=== PATIENT | male | born 1955 | race Caucasian/White ===

== ENCOUNTER 2021-01-02 11:08 | Emergency (ER) | payer OTHER ==
[~2021-01-02] VITALS: Ht 167.6 cm; Wt 75.0 kg
[~2021-01-02 11:08] MED LIST: AMOX/K CLAV875 M1 PO
[2021-01-02] MEDS ORDERED: AMOX/K CLAV875 M1 PO (12:24)
[2021-01-02 12:40] VITALS: BP 123/76
[2021-01-02] MEDS ORDERED: NO HOME MEDS (13:33)
== END 2021-01-02 12:40 | disposition home or self-care (01) | DRG 605 ==
LOC: ED 11:08
DX: S80.271A Other superficial bite of right knee, initial encounter (principal); S80.872A Other superficial bite, left lower leg, initial encounter; W54.0XXA Bitten by dog, initial encounter; Y93.89 Activity, other specified; Y92.89 Other specified places as the place of occurrence of the external cause; Y99.0 Civilian activity done for income or pay